=== PATIENT | male | born 1990 | race American Indian/Alaskan Native ===

== ENCOUNTER 2019-06-26 22:58 | Emergency (ER) | payer SELFPAY ==
--- NOTE | 2019-06-27 01:19 | XRay Report ---
CHEST 1 VIEW INDICATION / CLINICAL INFORMATION: Chest Pain. COMPARISON: None available. FINDINGS: SUPPORT DEVICES: None. HEART / MEDIASTINUM: No significant abnormality. LUNGS / PLEURA: No significant pulmonary or pleural abnormality. No pneumothorax. ADDITIONAL FINDINGS: No significant additional findings. IMPRESSION: 1. No significant change Signer Name: Kwame Sommers MD Signed: 06/27/2019 1:15 AM Workstation Name: [id number]
[2019-06-27] MEDS ORDERED: ASPIRIN 325 MG TAB PO ONE (02:51)
[2019-06-27] MEDS ORDERED: dexAMETHasone 20 MG/5 ML VIAL IV ONE (02:51)
[2019-06-27 03:24] LABS: Basophils % (Auto) 0.6 % (0.0-1.8); Eosinophils # (Auto) 0.2 K/mm3 (0.0-0.4); Eosinophils % (Auto) 2.1 % (0.0-4.3); Hematocrit 39.6 % (35.5-45.6); Hemoglobin 13.2 gm/dl (11.8-15.2); Lymphocytes # (Auto) 2.2 K/mm3 (1.2-5.4); Mean Corpuscular HGB Conc 34 % (32-34); Mean Corpuscular Volume 87 fl (84-94); Monocytes # (Auto) 0.6 K/mm3 (0.0-0.8); Monocytes % (Auto) 7.6 % (0.0-7.3); Platelet Count 201 K/mm3 (140-440); Red Blood Count 4.54 M/mm3 (3.65-5.03); Red Cell Distribution Width 13.1 % (13.2-15.2)
[2019-06-27 03:50] LABS: Alanine Aminotransferase 11 units/L (7-56); Albumin 4.3 g/dL (3.9-5); BUN/Creatinine Ratio 12; Blood Urea Nitrogen 11 mg/dL (9-20); Calcium 9.2 mg/dL (8.4-10.2); Hemolysis Index 9
--- NOTE | 2019-06-27 05:37 | Cat Scan Report ---
CT angiography of the chest with 2-D reconstructions INDICATION: Chest pain Thin section axial images were obtained as well as 2-D reformatted MIP images in all 3 planes FINDINGS: There is no hilar or mediastinal adenopathy. No pleural or pericardial effusion. Lung windo ws show no nodules, masses or infiltrates. There is no thoracic aortic aneurysm or dissection present . Routine axial images as well as 2-D reconstructions through the pulmonary arteries show no evidence of emboli. IMPRESSION: Negative chest CTA Automated exposure control was utilized to diminish radiation dose. Signer Name: Kwame Sommers MD Signed: 06/27/2019 5:33 AM Workstation Name: [id number]
--- NOTE | 2019-06-27 05:48 | Emergency Department Report ---
ED Chest Pain HPI - General Chief Complaint: Chest Pain Stated Complaint: CHEST PAIN Source: patient Mode of arrival: Ambulatory Limitations: No Limitations - History of Present Illness Initial Comments: Patient is a 29-year-old -[place] male with no past medical history presents to the ED with complaint of acute onset of persistent severe substernal chest pain that is intermittent and that radiates to the mid posterior thoracic area for the last 3 days. Patient states that the pain is worse with any movement, lifting, or deep inhalation. Patient described the pain as sharp and intermittent. Patient denies shortness of breath, dizziness, headache, abdominal pain, nausea, vomiting, neck pain, traumatic injury or heavy lifting, fall, fever, chills, cough, palpitations, syncope or change in vision. MD Complaint: chest pain, other (mid-posterior thoracic pain) -: Sudden, days(s) (3) Onset: during exertion, awoke with symptoms Pain Location: substernal, other (mid-posterior thoracic pain) Pain Radiation: back (mid-posterior thoracic area) Severity: severe Severity scale (0 -10): 7 Quality: aching, sharp Consistency: intermittent Improves With: nothing Worsens With: exertion, inspiration, palpation, movement Context: other (spontaneous) re: denies: nausea, vomting, diaphoresis, dyspnea, sense of impending doom, other Other Symptoms: denies: cough, fever, syncope, rash, acid taste in mouth, leg swelling, palpitations, burping, other Treatments Prior to Arrival: none Aspirin use within the Past 7 Days: (0) No - Related Data On Oral Contraceptives: No Previous Rx's Medication Instructions Recorded Last Taken Type Cyclobenzaprine [Flexeril] 10 mg PO Q8H PRN #15 tablet 06/27/19 Unknown Rx Naproxen 500 mg PO Q12H PRN #30 tablet 06/27/19 Unknown Rx predniSONE [Deltasone] 40 mg PO QDAY #10 tab 06/27/19 Unknown Rx Allergies Allergy/AdvReac Type Severity Reaction Status Date / Time No Known Allergies Allergy Verified 06/26/19 23:19 Heart Score - HEART Score History: Slightly suspicious EKG: Normal Age: < 45 Risk factors: No known risk factors Troponin: < normal limit HEART Score: 0 - Critical Actions Critical Actions: 0-3 pts:0.9-1.7%risk of adverse cardiac event.Candidate for discharge ED Review of Systems ROS: Stated complaint: CHEST PAIN Other details as noted in HPI Constitutional: denies: chills, fever Eyes: denies: eye pain, eye discharge, vision change ENT: denies: ear pain, throat pain Respiratory: denies: cough, shortness of breath, wheezing Cardiovascular: chest pain (substernal). denies: palpitations Endocrine: no symptoms reported Gastrointestinal: denies: abdominal pain, nausea, diarrhea Genitourinary: denies: urgency, dysuria Musculoskeletal: back pain (mid-posterior thoracic area). denies: joint swelling, arthralgia Skin: denies: rash, lesions Neurological: denies: headache, weakness, paresthesias Psychiatric: denies: anxiety, depression Hematological/Lymphatic: denies: easy bleeding, easy bruising ED Past Medical Hx - Past Medical History Previous Medical History?: No - Surgical History Past Surgical History?: Yes Additional Surgical History: Right testis, right arm, right ear drum - Social History Smoking Status: Never Smoker Substance Use Type: None - Medications Home Medications: Home Medications Medication Instructions Recorded Confirmed Last Taken Type Cyclobenzaprine [Flexeril] 10 mg PO Q8H PRN #15 tablet 06/27/19 Unknown Rx Naproxen 500 mg PO Q12H PRN #30 tablet 06/27/19 Unknown Rx predniSONE [Deltasone] 40 mg PO QDAY #10 tab 06/27/19 Unknown Rx ED Physical Exam - General Limitations: No Limitations General appearance: alert, in no apparent distress - Head Head exam: Present: atraumatic, normocephalic, normal inspection - Eye Eye exam: Present: normal appearance, PERRL, EOMI Pupils: Present: normal accommodation - ENT ENT exam: Present: normal exam, normal orophraynx, mucous membranes moist, TM's normal bilaterally, normal external ear exam - Neck Neck exam: Present: normal inspection, full ROM. Absent: tenderness - Respiratory Respiratory exam: Present: normal lung sounds bilaterally, chest wall tenderness (anterior palable chest wall tenderness). Absent: respiratory distress, wheezes, rales, decreased breath sounds - Cardiovascular Cardiovascular Exam: Present: regular rate, normal rhythm, normal heart sounds. Absent: systolic murmur, diastolic murmur, rubs, gallop - GI/Abdominal GI/Abdominal exam: Present: soft, normal bowel sounds. Absent: tenderness, guarding, hyperactive bowel sounds, hypoactive bowel sounds - Extremities Exam Extremities exam: Present: normal inspection, full ROM, normal capillary refill - Back Exam Back exam: Present: normal inspection, tenderness (palpable mid posterior thoracic paraspinal musculoskeletal tenderness), muscle spasm, paraspinal tenderness - Neurological Exam Neurological exam: Present: alert, oriented X3, CN II-XII intact, normal gait, reflexes normal - Psychiatric Psychiatric exam: Present: normal affect, normal mood - Skin Skin exam: Present: warm, dry, intact, normal color. Absent: rash ED Course Vital Signs 06/27/19 00:43 Temperature 98.3 F Pulse Rate 77 Respiratory 16 Rate Blood Pressure 139/99 [Left] O2 Sat by Pulse 98 Oximetry THOMPSON score - Thompson Score Age > 65: (0) No Aspirin use within the Past 7 Days: (0) No 3 or more CAD Risk Factors: (0) No 2 or more Angina events in past 24 hrs: (0) No Known CAD with more than 50% Stenosis: (0) No Elevated Cardiac Markers: (0) No ST Deviation Greater than 0.5mm: (0) No THOMPSON Score: 0 ED Medical Decision Making - Lab Data Result diagrams: 06/27/19 03:02 06/27/19 03:02 - EKG Data EKG shows normal: sinus rhythm Rate: normal - EKG Data Interpretation: normal EKG 06/27/19 05:50 EKG shows normal sinus rhythm with ventricular rate of [address] or T- wave abnormalities or pathological Q waves. - Radiology Data Radiology results: report reviewed, image reviewed Chest x-ray shows no acute cardiopulmonary abnormalities or pneumonitis. Chest CTA shows no acute cardiopulmonary abnormalities or PE. - Medical Decision Making This is a 29-year-old male with no past medical history who presented to the ED with substernal chest pain that radiates to the mid posterior thoracic area for the last 2 days. In the ED, patient is alert and oriented 3 and is in distress but appears to be in significant pain. Vital signs are stable. EKG shows normal sinus rhythm with a ventricular rate of 67 beats per minute and no pathological Q waves. Chest x-ray shows no acute cardiopulmonary abnormalities. Lipase results are reviewed and are all nonactionable except for d-dimer which was slightly elevated. CTA chest shows no acute cardio pulmonary abnormalities or pneumonitis or evidence of PE. Patient's heart score is 0 and THOMPSON score is 0. Patient has no cardiac risk factors and therefore lab test results confirm the absence of any acute coronary syndrome as the cause of the patient's symptoms but likely musculoskeletal muscle strain or muscle spasm. Patient was treated for pain in the ED and on reevaluation, patient's pain is well controlled with medications. Patient was discharged home on pain medications and muscle relaxants and was advised to follow-up with his primary care physician in 5-7 days for reevaluation or return to the ED immediately if symptoms get worse. - Differential Diagnosis ACS; PE; Muscle strain; Pneumonia; Muscle spasm Critical care attestation.: If time is entered above; I have spent that time in minutes in the direct care of this critically ill patient, excluding procedure time. ED Disposition Clinical Impression: Acute costochondritis, Acute chest wall pain, Spasm of thoracic back muscle Disposition: TO HOME OR SELFCARE Is pt being admited?: No Does the pt Need Aspirin: No Condition: Stable Instructions: Chest Pain (ED), Muscle Strain (ED), Back Pain (ED), Costochondritis (ED) Additional Instructions: Take medication with food, drink plenty of fluids and follow up with your primary care physician in 5-7 days for reevaluation. Return to the ED immediately if symptoms get worse. Prescriptions: predniSONE [Deltasone] 40 mg PO QDAY #10 tab Cyclobenzaprine [Flexeril] 10 mg PO Q8H PRN #15 tablet PRN Reason: Muscle Spasm Naproxen 500 mg PO Q12H PRN #30 tablet PRN Reason: Pain , Severe (7-10) Referrals: MAEVE WADDELL MD [Staff Physician] - 7-10 days Forms: Work/School Release Form(ED) Time of Disposition: 05:45 Print Language: MALDIVIAN
[2019-06-27 06:09] VITALS: BP 138/100
== END 2019-06-27 06:07 | disposition home or self-care (01) ==
LOC: ED 22:58
DX: M94.0 Chondrocostal junction syndrome [Tietze] (principal); M62.830 Muscle spasm of back; Z98.890 Other specified postprocedural states
CPT/HCPCS: 36415; 71045; 71275; 80053; 84484; 85025; 85379; 93005; 93010; 96374; 99284; J1100; Q9967